=== PATIENT | female | born 1990 | race African-American/Black ===

== ENCOUNTER → 2019-10-11 | Outpatient (CLI) | payer OTHER ==
[~2019-10-11] MED LIST: PRILOSEC 20 MG20 MG PO; TRAMADOL 50 MG50 MG PO
== END ==
LOC: LABMALL 14:27
PROVIDERS: ATTEND Obstetrics & Gynecology
DX: Z20.2 Contact with and (suspected) exposure to infections with a predominantly sexual mode of transmission (principal)

== ENCOUNTER 2019-11-27 09:50 | Inpatient (IN) | payer OTHER ==
[~2019-11-27] VITALS: Ht 165.1 cm; Wt 86.2 kg
--- NOTE | ~2019-11-27 | O ---
[facility] [place] [address] OPERATIVE REPORT Name: ROSE CHAVES Room #: 441-P ADM IN M.R.#: [id number] Admission: 11/27/19 Attend Phys: Barry Velazquez MD Discharge: Date of : 86 Report #: [id number] THIS REPORT FOR: cc: Kalyani Erickson MD, Nora P. MD Patterson, Jonathan D. MD ~ CC: Barry Erickson DATE OF SERVICE: 11/28/2019 PREOPERATIVE DIAGNOSIS: Cholelithiasis. POSTOPERATIVE DIAGNOSIS: Acute cholecystitis. PROCEDURE: Laparoscopic cholecystectomy. SURGEON: Luis Shen MD ANESTHESIA: General. ESTIMATED BLOOD LOSS: Minimal. SPECIMEN: Gallbladder. DESCRIPTION OF PROCEDURE: After informed consent was obtained, the patient was brought to the operating room and placed supine. SCDs were placed and working, preoperative antibiotics were administered, general anesthesia was induced. The abdomen was prepped and draped in the usual sterile fashion. A 10 mm incision was made below the umbilicus. Fascia was incised and a trocar was placed. Pneumoperitoneum was established. Three right upper quadrant 5 mm ports were placed. Gallbladder was grasped at the fundus and retracted cephalad. Infundibulum was grasped and retracted laterally. I dissected out the cystic duct and cystic artery. The cystic duct and artery were identified as well as the cystic plate. The cystic duct and artery were clipped and ligated leaving 2 clips on the remaining duct and one on the remaining artery. Gallbladder was then taken off the liver bed with electrocautery. It was placed into an Endopouch and removed. The fascia was then closed with a [id number] 0 Vicryl. Prior to desufflating the abdomen, I did put a PDS Endoloop on the remaining cystic duct as well as it was fairly large and the clip did not go across completely. The fascia at the umbilicus was closed with a [id number] 0 Vicryl. Skin was closed with 4-0 Monocryl. Incisions were sealed with Steri-Strips. COMPLICATIONS: None. [facility] [address] [place] [address] OPERATIVE REPORT Name: ANDIEROSE BERNARDO Room #: 441-P [facility] IN .R.#: [id number] Admission: 11/27/19 Attend Phys: Barry Velazquez MD Discharge: Date of : 86 Report #: [id number] DISPOSITION: The patient was taken to recovery in satisfactory condition. By: [id number] Luis Shen MD /nt
[2019-11-27 09:51] VITALS: BP 128/71
[2019-11-27] MEDS ORDERED: XANAX2 MG PO (10:27)
[2019-11-27 11:04] LABS: URINE BILIRUBIN NEGATIVE (Negative); URINE BLOOD 3+ (Negative); URINE CLARITY HAZY; URINE COLOR YELLOW; URINE GLUCOSE-RANDOM* NEGATIVE (Negative); URINE KETONES NEGATIVE (Negative); URINE LEUKOCYTES-REFLEX 2+ (Negative); URINE NITRITE-REFLEX NEGATIVE (Negative); URINE PROTEIN (DIPSTICK) TRACE (Negative); URINE SPECIFIC GRAVITY 1.025 (1.005-1.035)
[2019-11-27 11:12] LABS: ABSOLUTE NEUTROPHILS 11.1 thou/uL (1.4-8.2); BASOPHILS 0.4 % (0.0-2.0); EOSINOPHILS 0.4 % (0.0-3.0); HEMATOCRIT 36.1 % (37.0-47.0); HEMOGLOBIN 11.1 gm/dL (12.0-15.0); LYMPHOCYTES 11.2 % (24.0-44.0); MCH 24.2 pg (26.0-34.0); MCHC 30.7 g/dL (28.0-37.0); MCV 78.8 fL (80.0-100.0); MONOCYTES 6.4 % (1.0-8.0); PLATELET COUNT 280 thou/uL (150-400); POLYS 81.6 % (36.0-66.0); RBC 4.59 mil/uL (4.20-5.00); RDW 13.9 % (10.5-14.5); WBC 13.7 thou/uL (4.0-11.0)
[2019-11-27 11:20] LABS: SQUAMOUS >10 Many /LPF (0-3); URINE RBC >20 Many /HPF (0-2)
[2019-11-27 11:21] LABS: CASTS None Seen /LPF (None Seen); CRYSTALS None Seen /LPF (None Seen)
[2019-11-27 11:23] LABS: CALCIUM 9.4 mg/dL (8.5-10.1); CREATININE 0.6 mg/dL (0.6-1.0); POTASSIUM 3.5 mmol/L (3.5-5.1)
[2019-11-27 11:30] LABS: TOTAL BILIRUBIN 0.4 mg/dL (0.2-1.0); TOTAL PROTEIN 8.9 g/dL (6.4-8.2)
[2019-11-27 14:26] VITALS: BP 107/64
[2019-11-27 15:01] VITALS: BP 111/70
[2019-11-27 15:55] VITALS: BP 103/70
--- NOTE | 2019-11-27 17:35 | NUR ---
PATIENT ADMITTED FROM ER WITH HEMORRHAGIC CYST, OVARIAN CYST, AND BILIARY STONE. PATOENT C/O PAIN WITH UNDER RIGHT RIB AREA, AND LOWER ABDOMEN AREA RIGHT SIDE. DANISHA/RN GAVE HYDROCODONE TABLET FOR PAIN. PATIENT HAS RIGHT AC IV IN PLACE, NS AT 75CC/HR STARTED. PATIENT DENIES NAUSEA. PATIENT WILL BE NPO AFTER MIDNIGHT FOR SURGERY TOMORROW. ADMISSION COMPLETED, REPORT GIVEN TO DANISHA/RN.
--- NOTE | 2019-11-27 18:15 | NUR ---
ASSUMED CARE OF PT APPROX 1525. PT A&OX4, VSS, PAIN IN ABDOMEN. PATIENT GIVEN PAIN MEDICATION. PATIENT CAME FROM ER ON REG DIET, ATE DINNER, DENIES N/V. PATIENT NOW ON CLEAR LIQUIDS AND THEN WILL BE NPO AFTER MIDNIGHT FOR AM SURGERY. NO SIGNS OF DISTRESS. WILL CONTINUE TO MONITOR.
[2019-11-27 19:51] VITALS: BP 109/68
[2019-11-28] VITALS (7 sets, daily range): BP systolic 102–118; BP diastolic 63–75
--- NOTE | 2019-11-28 03:55 | NUR ---
PT C/O PAIN ON HER RLQ,MANAGED WITH MED.PT UP ADLIB IN THE ROOM.PT NPO AT THIS TIME FOR A POSSIBLE SURGERY TODAY.PT WANTS TO BE INFORMED OF TIME FOR HER SURGERY.PT SLEEPING AT THIS TIME.IVF INFUSING ORDERED.CALL LIGHT WITHIN REACH.
[2019-11-28 04:30] LABS: ABSOLUTE NEUTROPHILS 6.6 thou/uL (1.4-8.2); BASOPHILS 0.4 % (0.0-2.0); LYMPHOCYTES 21.5 % (24.0-44.0); MCH 24.7 pg (26.0-34.0); MCHC 31.3 g/dL (28.0-37.0); MCV 78.7 fL (80.0-100.0); MONOCYTES 8.5 % (1.0-8.0); POLYS 67.6 % (36.0-66.0); RBC 3.69 mil/uL (4.20-5.00); RDW 13.8 % (10.5-14.5); WBC 9.8 thou/uL (4.0-11.0)
[2019-11-28 04:34] LABS: HEMOGLOBIN 9.1 gm/dL (12.0-15.0); PLATELET COUNT 194 thou/uL (150-400)
[2019-11-28 04:43] LABS: CALCIUM 8.4 mg/dL (8.5-10.1); CREATININE 0.6 mg/dL (0.6-1.0); POTASSIUM 3.8 mmol/L (3.5-5.1)
--- NOTE | 2019-11-28 10:11 | NUR ---
ASSESSMENT: CM REVIEWED CHART AND SPOKE WITH PATIENT. PT IS ALERT AND ORIENTED X4. PT IS FROM HOME ALONE AND INDEPENDENT WITH ADLS AND AMBULATION. GENERAL SURGERY WAS CONSULTED FOR POSSIBLE LAP OOPHORECTOMY. PT REPORTS NO HX OF HH. PT REPORTS HER PCP IS TAMIA KAUR. CM WILL CONTINUE TO FOLLOW TO ASSIST NEEDED.
[2019-11-28] MEDS ORDERED: ACETAMINOPHEN325 M1 PO (16:53)
--- NOTE | 2019-11-28 18:35 | NUR ---
Assumed care of pt. at 0700. Pt. complained of pain rated at a 10 out of 10. Pain meds given. Pre-op came to pick pt. up for surgery, pt. became distressed d/t lack of communication with surgeons and no knowledge of surgical plans. Both surgeons contacted along with hospitalists. Pt. refused to go anywhere until she was talked to by the surgeons. Dr. Shen came and spoke with pt. and she agreed to have gallbladder removal surgery. Pt. came back from surgery and spoke with Dr. Gasca and agreed to visit her practice for follow up on cyst. Pt. voiced that she felt her pain was well controlled and wished to go home. Discharged cleared with Dr. Shen and Dr. Velazquez. Pt. left with all belongings.
== END 2019-11-28 18:08 | disposition home or self-care (01) | DRG 418 ==
LOC: ER 09:50 → 4S 14:25 → EROBS 14:25 → 4S 15:01
PROVIDERS: Emergency Medicine; Nurse Practitioner; ADMIT Hospitalist; ATTEND Hospitalist
PROC: 0FT44ZZ Resection of Gallbladder, Percutaneous Endoscopic Approach (ICD-10-PCS; principal; 2019-11-28)
DX: K80.00 Calculus of gallbladder with acute cholecystitis without obstruction (principal); N39.0 Urinary tract infection, site not specified; N83.8 Other noninflammatory disorders of ovary, fallopian tube and broad ligament; F17.210 Nicotine dependence, cigarettes, uncomplicated; F12.90 Cannabis use, unspecified, uncomplicated; Z20.828 Contact with and (suspected) exposure to other viral communicable diseases; Z28.21 Immunization not carried out because of patient refusal; Z79.899 Other long term (current) drug therapy
CPT/HCPCS: 10195; 50010; 50101; 50249; 50411; 50555; 51297; 51489; 52265; 52266; 53307; 53312; 53314; 54118; 55245; 56462; 56525; 56526; 62110; 62900; 70005

== ENCOUNTER → 2020-09-19 | Outpatient (CLI) | payer OTHER ==
[~2020-09-19] MED LIST changes: +ACETAMINOPHEN325 M1 PO; +XANAX2 MG PO
[2020-09-19 11:47] LABS: ABSOLUTE NEUTROPHILS 8.2 thou/uL (1.4-8.2); BASOPHILS 0.5 % (0.0-2.0); EOSINOPHILS 0.7 % (0.0-3.0); HEMATOCRIT 35.8 % (37.0-47.0); HEMOGLOBIN 11.2 gm/dL (12.0-15.0); LYMPHOCYTES 14.2 % (24.0-44.0); MCH 25.2 pg (26.0-34.0); MCHC 31.4 g/dL (28.0-37.0); MCV 80.2 fL (80.0-100.0); MONOCYTES 5.7 % (1.0-8.0); PLATELET COUNT 248 thou/uL (150-400); POLYS 78.9 % (36.0-66.0); RBC 4.46 mil/uL (4.20-5.00); RDW 12.7 % (10.5-14.5); WBC 10.4 thou/uL (4.0-11.0)
== END ==
LOC: LAB 11:19
PROVIDERS: ATTEND Obstetrics & Gynecology
DX: N93.9 Abnormal uterine and vaginal bleeding, unspecified (principal); N91.2 Amenorrhea, unspecified; R10.30 Lower abdominal pain, unspecified

== ENCOUNTER → 2020-09-20 | Outpatient (CLI) | payer OTHER | LOC: ULTRA 13:54 | PROVIDERS: ATTEND Obstetrics & Gynecology | DX: N83.202 Unspecified ovarian cyst, left side (principal); N92.6 Irregular menstruation, unspecified ==